=== PATIENT | female | born 2000 | race African-American/Black ===

== ENCOUNTER → 2020-04-06 | Outpatient (CLI) | payer SELFPAY | LOC: M LABSMTC 13:15 | PROVIDERS: ATTEND Pediatrics | DX: Z20.828 Contact with and (suspected) exposure to other viral communicable diseases (principal) ==

== ENCOUNTER → 2020-04-16 | Outpatient (CLI) | payer SELFPAY | LOC: M LABSMTC 13:21 | PROVIDERS: ATTEND Pediatrics | DX: Z20.828 Contact with and (suspected) exposure to other viral communicable diseases (principal) ==

== ENCOUNTER → 2020-07-19 | Outpatient (REF) | payer MEDICARE, OTHER ==
[2020-07-19 15:52] LABS: HEMATOCRIT 40.4 % (36.0-47.0); HEMOGLOBIN 13.2 g/dl (12.0-15.5); MEAN CORPUSCULAR HEMOGLOBIN 27.1 pg (27.0-33.0); MEAN CORPUSCULAR HGB CONC 32.7 g/dl (32.0-36.5); PLATELET COUNT, AUTOMATED 341 10^3/uL (150-450); RED BLOOD COUNT 4.87 10^6/uL (4.00-5.40); WHITE BLOOD COUNT 8.2 10^3/uL (4.0-10.0)
[2020-07-19 16:22] LABS: TOTAL PROTEIN,RANDOM URINE 28.4 MG/DL (0.0-12.0)
[2020-07-19 16:24] LABS: ALT/SGPT 29 U/L (12-78); BILIRUBIN,TOTAL 0.2 MG/DL (0.2-1.0); CREATININE FOR GFR 0.56 MG/DL (0.55-1.30); GLOMERULAR FILTRATION RATE > 60.0 (>60); LDH LACTATE DEHYDROGENASE 149 U/L (84-246); URIC ACID 2.7 MG/DL (2.6-6.0)
[2020-07-19 17:40] LABS: HEPATITIS C VIRUS ABY INDEX < 0.0 INDEX (<0.8); HIV 1&2 SCREEN CENTAUR NEGATIVE (NEGATIVE)
== END ==
LOC: M PLALAB 12:57
PROVIDERS: ATTEND Advanced Practice Midwife
DX: O30.041 Twin pregnancy, dichorionic/diamniotic, first trimester (principal); Z79.899 Other long term (current) drug therapy

== ENCOUNTER → 2020-08-09 | Outpatient (REF) | payer MEDICARE, OTHER | LOC: M SFHCWAGY 15:13 | PROVIDERS: ATTEND Advanced Practice Midwife | DX: Z36.89 Encounter for other specified antenatal screening (principal); Z3A.11 11 weeks gestation of pregnancy; Z79.899 Other long term (current) drug therapy ==

== ENCOUNTER → 2020-08-14 | Outpatient (CLI) | payer MEDICARE, OTHER ==
--- NOTE | 2020-08-15 05:59 | REP ---
INDICATION: CONFIRM DATING/URIEL 02/25/21 COMPARISON: None. TECHNIQUE: Transabdominal 1st trimester obstetrical ultrasound with color Doppler evaluation. FINDINGS: Live early twin intrauterine is appreciated. FETUS A: [place]-rump length of 5.6 cm corresponds to 12 weeks 1 day gestational age with estimated date of delivery 02/25/2021. heart rate equals 155 beats per minute. No gross abnormalities are identified. FETUS B: [place]-rump length of 5.6 cm corresponds to 12 weeks 1 day gestational age with estimated date of delivery 02/25/2021. heart rate equals 155 beats per minute. No gross abnormalities are identified. IMPRESSION: Early twin . <Electronically signed by Elbert Escamilla > 08/15/20 [id number]
== END ==
LOC: M WHC 10:55
PROVIDERS: ATTEND Advanced Practice Midwife
DX: Z34.80 Encounter for supervision of other normal pregnancy, unspecified trimester (principal)